=== PATIENT | male | born 1950 | race Caucasian/White ===

== ENCOUNTER 2016-06-18 10:24 | Emergency (ER) | payer OTHER ==
[~2016-06-18] VITALS: Ht 177.8 cm; Wt 74.8 kg
--- NOTE | ~2016-06-18 | EKG ---
[address] [address] ELECTROCARDIOGRAM REPORT Name: GAVIN LIU Room #: DEP [facility]#: [id number] Admission: 06/18/16 Attend Phys: Discharge: 06/18/16 Date of : 46 Report #: [id number] THIS REPORT FOR: //name// [facility] ED Test Date: 2016-06-18 Test Time: 11:26:21 Pat Name: GAVIN LIU Department: Room: Gender: M [employer] Worker: lita : 1950 Requested By: Juan Carlos Jara Order Number: [id number] MD: Gianni Recinos Measurements Intervals [place] Rate: 75 P: 68 VT: 130 QRS: 0 QRSD: 89 T: 40 QT: 421 QTc: 471 Interpretive Statements Sinus rhythm Compared to ECG 06/30/2015 20:06:19 No significant changes Electronically Signed On 06-19-2016 8:51:58 CDT by Gianni Recinos [email or web address] <ELECTRONICALLY SIGNED> By: Gianni Recinos MD 06/19/16 0851 [id number] 25 Gianni Recinos MD /LAURITA
[~2016-06-18 10:24] MED LIST: AMBIEN 10 MG TA10 MG PO; AMBIEN 5 MG TABL5 M1 PO; ANECREAM5 GM; ASPIR 8181 MG PO; BACTRIM DS TAB1 EACH PO; CIALIS10 MG PO; INVOKANA100 MG PO; LANTUS100 UNIT/M SUBQ; LEVEMIR SQ; LISINOPRIL10 MG PO; METFORMIN HCL500 MG PO; METHOCARBAMOL750 MG PO; MOBIC7.5 M1 PO; NEURONTIN 300300 M1 PO; NORCO 5-325 TA1 EACH PO; NORFLEX100 MG PO; NOVOLOG MI100 UNIT/M SC; NOVOLOG100 UNIT/1 SUBQ; ONDANSETRON HCL4 M2 PO; PANTOPRAZOLE SO40 M1 PO; PAXIL10 MG; PREDNISONE 10 M10 MG PO; PRINIVIL20 M1 PO; REGLAN 5 MG TAB5 MG PO; REMERON15 MG PO; TRAMADOL 50 MG50 MG PO; ZOCOR20 MG PO
[2016-06-18 11:11] LABS: ABSOLUTE NEUTROPHILS 7.3 thou/uL (1.4-8.2); BASOPHILS 0.7 % (0.0-2.0); EOSINOPHILS 0.1 % (0.0-3.0); HEMATOCRIT 46.3 % (42.0-52.0); HEMOGLOBIN 15.3 gm/dL (14.0-18.0); LYMPHOCYTES 16.6 % (24.0-44.0); MCH 26.6 pg (26.0-34.0); MCHC 33.1 g/dL (28.0-37.0); MCV 80.4 fL (80.0-100.0); MONOCYTES 4.9 % (1.0-8.0); PLATELET COUNT 320 thou/uL (150-400); POLYS 77.7 % (36.0-66.0); RBC 5.76 mil/uL (4.50-6.00); RDW 13.9 % (10.5-14.5); WBC 9.4 thou/uL (4.0-11.0)
[2016-06-18 11:14] LABS: MANUAL DIFF NO
[2016-06-18 11:19] LABS: ANION GAP 17 mmol/L (7-16); BUN 11 mg/dL (7-18); CALCIUM 9.7 mg/dL (8.5-10.1); CHLORIDE 98 mmol/L (98-107); CO2 20 mmol/L (21-32); CREATININE 0.8 mg/dL (0.7-1.3); GLUCOSE 152 mg/dL (74-106); POTASSIUM 3.8 mmol/L (3.5-5.1); SODIUM 135 mmol/L (136-145)
[2016-06-18 11:26] LABS: ALBUMIN 4.1 g/dL (3.4-5.0); ALKALINE PHOSPHATASE 117 U/L (46-116); DIRECT BILIRUBIN 0.2 mg/dL (<0.1-0.3); SGOT 24 U/L (15-37); SGPT 28 U/L (30-65); TOTAL BILIRUBIN 0.9 mg/dL (<0.1-1.0); TOTAL PROTEIN 8.1 g/dL (6.4-8.2); TROPONIN-I < 0.04 ng/mL (<0.04-0.07)
[2016-06-18 12:10] LABS: URINE BILIRUBIN NEGATIVE (Negative); URINE BLOOD NEGATIVE (Negative); URINE COLOR YELLOW; URINE GLUCOSE-RANDOM* 2+ (Negative); URINE KETONES 3+ (Negative); URINE NITRITE NEGATIVE (Negative); URINE PROTEIN (DIPSTICK) NEGATIVE (Negative); URINE SPECIFIC GRAVITY 1.025 (1.003-1.035); URINE UROBILINOGEN 0.2 E.U./dl (0.2-1.0)
[2016-06-18] MEDS ORDERED: ONDANSETRON HCL4 M2 PO (14:49)
== END 2016-06-18 15:13 | disposition home or self-care (01) ==
LOC: ER 10:24
PROVIDERS: Nurse Practitioner
DX: R11.2 Nausea with vomiting, unspecified (principal); E11.9 Type 2 diabetes mellitus without complications; I10 Essential (primary) hypertension; F32.9 Major depressive disorder, single episode, unspecified; F41.9 Anxiety disorder, unspecified; Z90.49 Acquired absence of other specified parts of digestive tract; Z88.8 Allergy status to other drugs, medicaments and biological substances

== ENCOUNTER 2016-09-18 01:57 | Emergency (ER) | payer OTHER ==
[~2016-09-18] VITALS: Ht 177.8 cm; Wt 74.8 kg
--- NOTE | ~2016-09-18 | EKG ---
[place] [address] [facility] [place] [address] ELECTROCARDIOGRAM REPORT Name: NOEGAVIN ANDREI Room #: DEP [facility]#: [id number] Admission: 09/18/16 Attend Phys: Discharge: 09/18/16 Date of : 46 Report #: [id number] THIS REPORT FOR: //name// [facility] ED Test Date: 2016-09-18 Test Time: 02:23:50 Pat Name: GAVIN LIU Department: Room: Gender: M [employer]visor [employer]: RAMY : 1950 Requested By: Tiffanie Seth Order Number: [id number] MD: Paco North Measurements Intervals [place] Rate: 89 P: 48 MT: 139 QRS: -5 QRSD: 91 T: -8 QT: 357 QTc: 435 Interpretive Statements Sinus rhythm ST and T wave abnormality Compared to ECG 06/18/2016 11:26:21 Poor R wave progression is now present ST and T wave abnormality is now noted Electronically Signed On 09-19-2016 9:59:25 CDT by Paco North [email or web address] <ELECTRONICALLY SIGNED> By: Paco North MD, [facility] 09/19/16 0959 2 2 Paco North MD, [facility] /EPI
[2016-09-18 02:31] LABS: ABSOLUTE NEUTROPHILS 7.7 thou/uL (1.4-8.2); BASOPHILS 0.6 % (0.0-2.0); EOSINOPHILS 1.2 % (0.0-3.0); HEMATOCRIT 42.7 % (42.0-52.0); LYMPHOCYTES 16.9 % (24.0-44.0); MCH 26.4 pg (26.0-34.0); MCHC 32.8 g/dL (28.0-37.0); MCV 80.6 fL (80.0-100.0); MONOCYTES 4.3 % (1.0-8.0); PLATELET COUNT 293 thou/uL (150-400); RDW 13.5 % (10.5-14.5)
[2016-09-18 02:33] LABS: MANUAL DIFF NO
[2016-09-18 02:41] LABS: ANION GAP 11 mmol/L (7-16); BUN 17 mg/dL (7-18); CHLORIDE 96 mmol/L (98-107); CO2 27 mmol/L (21-32); GLUCOSE 479 mg/dL (74-106); POTASSIUM 4.2 mmol/L (3.5-5.1); SODIUM 134 mmol/L (136-145)
[2016-09-18 02:49] LABS: TROPONIN-I < 0.04 ng/mL (<0.04-0.07)
[2016-09-18 02:53] LABS: URINE BILIRUBIN NEGATIVE (Negative); URINE BLOOD NEGATIVE (Negative); URINE COLOR YELLOW; URINE GLUCOSE-RANDOM* 3+ (Negative); URINE KETONES NEGATIVE (Negative); URINE NITRITE NEGATIVE (Negative); URINE PROTEIN (DIPSTICK) NEGATIVE (Negative); URINE SPECIFIC GRAVITY <= 1.005 (1.003-1.035); URINE UROBILINOGEN 0.2 E.U./dl (0.2-1.0)
== END 2016-09-18 02:58 | disposition home or self-care (01) ==
LOC: ER 01:57
PROVIDERS: Emergency Medicine
DX: J06.9 Acute upper respiratory infection, unspecified (principal); E11.9 Type 2 diabetes mellitus without complications; I10 Essential (primary) hypertension; F32.9 Major depressive disorder, single episode, unspecified; F41.9 Anxiety disorder, unspecified; F10.99 Alcohol use, unspecified with unspecified alcohol-induced disorder; Z79.4 Long term (current) use of insulin